=== PATIENT | male | born 1925 | race Caucasian/White ===

== ENCOUNTER → 2017-08-23 | Outpatient (CLI) | payer MEDICARE, OTHER ==
[~2017-08-23] MED LIST: ALBU90OI6 INH; ASPI81EC PO; AZIT250 PO; CYAN1000I IM; CYAN500 PO; DILT120 PO; DILT120ERA PO; FOLI1 PO; FOLIC ACID; FURO20 PO; HYDACE5 PO; IBUP800 PO; LEVSOD137; LEVSOD150 PO; ONDA4 PO; POTA10T PO; PRED20 PO; PSYL5.85P PO; TOLT4 PO; [UNRECOGNIZED DRUG - REMARK]
== END ==
LOC: PLD 13:29 → LAB SHORT 13:29
DX: C44.329 Squamous cell carcinoma of skin of other parts of face (principal)
CPT/HCPCS: 88305